=== PATIENT | male | born 2005 | race Caucasian/White ===

== ENCOUNTER 2025-01-01 06:34 | Emergency (ER) | payer MEDICAID ==
[~2025-01-01] VITALS: Ht 175.3 cm; Wt 75.0 kg
[2025-01-01 07:38] LABS: PLATELET COUNT (AUTO) 336 K/uL (150-450); RED BLOOD CELL COUNT(AUTO) 5.41 MIL/uL (4.50-5.90); RED CELL DISTRIBUTION WIDTH 12.7 % (11.5-14.5); WHITE BLOOD COUNT (AUTO) 14.0 K/uL (4.5-11.0)
[2025-01-01 07:39] VITALS: TEMP 98.105288
[2025-01-01 07:45] LABS: CALCIUM, TOTAL 9.3 mg/dL (8.8-10.5); CREATININE 1.17 mg/dL (0.60-1.30); GLOMERULAR FILTR. RATE CALC > 60 mL/min (>60); GLUCOSE,RANDOM 98 mg/dL (70-110); SODIUM SERUM 136 mmol/L (136-145); UREA NITROGEN, BLOOD 16 mg/dL (7-18)
[2025-01-01 08:50] VITALS: BP 139/85; PULSE 85; RESP 18; O2SAT 97
== END 2025-01-01 09:31 | disposition home or self-care (01) ==
LOC: EMS 06:36
DX: F60.0 Paranoid personality disorder (principal); F14.10 Cocaine abuse, uncomplicated; F15.10 Other stimulant abuse, uncomplicated; Z03.89 Encounter for observation for other suspected diseases and conditions ruled out; Z91.010 Allergy to peanuts
CPT/HCPCS: 80048; 85025; 99285